=== PATIENT | female | born 1945 | race Caucasian/White ===

== ENCOUNTER → 2017-01-20 | Outpatient (CLI) | payer MEDICARE ==
--- NOTE | 2017-01-20 14:15 | WOMENS IMAGING REPORT ---
EXAM DESCRIPTION: BILAT SCREENING MAMMO W/CAD COMPLETED DATE/TIME: 01/20/2017 7:55 am REASON FOR STUDY: SCREENING MAMMO Z12.31 ENCNTR SCREEN MAMMOGRAM FOR MALIGNANT NEOPLASM OF MANDO COMPARISON: None. TECHNIQUE: Standard craniocaudal and mediolateral oblique views of each breast recorded using digita l acquisition. LIMITATIONS: None. FINDINGS: No masses, calcifications or architectural distortion. No areas of suspicion. Read with the assistance of CAD. .[facility] - R2 [employer] Version 1.3 .[facility] - R2 Cenova Version 1.3 .[facility] - R2 Cenova Version 2.4 .[facility] [place] - R2 Cenova Version 2.4 .[facility] - R2 [employer] Version 9.2 IMPRESSION: NORMAL MAMMOGRAM. BIRADS 1. BREAST DENSITY: a. The breasts are almost entirely fatty. BIRAD: 1 NEGATIVE RECOMMENDATION: ROUTINE SCREENING COMMENT: The patient has been notified of the results by letter per MQSA requirements. Additional no tification policies are in place for contacting patient with suspicious or incomplete findings. Quality ID #[id number]: The [employer] recommends an annual screening mammogram for women aged 40 years or over. This facility utilizes a reminder system to ensure that all patients receive reminder letters, and/or direct phone calls for appointments. This includes reminders for routine scr eening mammograms, diagnostic mammograms, or other Breast Imaging Interventions when appropriate. Th is patient will be placed in the appropriate reminder system. The [employer] ([employer]) has developed recommendations for screening MRI of the breast s in certain patient populations, to be used in conjunction with mammography. Breast MRI surveillanc e may be appropriate for women with more than 20% lifetime risk of developing breast cancer as deter mined by genetic testing, significant family history of the disease, or history of mantle radiation f or Hodgkins Disease. ACR Practice Guidelines 2008. TECHNICAL DOCUMENTATION: FINDING NUMBER: (1) ASSESSMENT: (1) JOB ID: [id number] [employer]- All Rights Reserved
== END ==
LOC: WI 07:29
PROVIDERS: ATTEND Physician Assistant Medical
DX: Z12.31 Encounter for screening mammogram for malignant neoplasm of breast (principal)
CPT/HCPCS: 77067; G0202

== ENCOUNTER 2017-10-19 02:32 | Emergency (ER) | payer MEDICARE, OTHER ==
[2017-10-19] MEDS ORDERED: ASPIRIN 81 MG TABLET, CHEWABLE PO ONE (03:38)
--- NOTE | 2017-10-19 04:17 | ER Document Report ---
ED General - General Chief Complaint: Shortness Of Breath Stated Complaint: SHORTNESS OF BREATH Time Seen by Provider: 10/19/17 03:18 Notes: Patient is a 71-year-old female presenting to the emergency department stating after waking up this evening to go to the bathroom she felt short of breath. Patient states it is about a 12 foot walk from her bed to the bathroom and during that time she became short of breath and broke out in sweat. Patient denies chest pain or syncopal episodes. Patient stated 2 weeks ago she had intermittent chest pain but has not had any since then. Patient denies any trauma or injury to her chest. Patient denies nausea, fever, vomiting, diarrhea , or upper respiratory symptoms. Patient states she has had a hiatal hernia repair and has also been diagnosed with a "fast heart rate." 3 months ago patient states she was taken off of her Eliquis, although was continued on metoprolol and baby aspirin. Patient denies smoking, illicit drug use, states drinks one alcohol beverage a year. TRAVEL OUTSIDE OF THE [place] IN LAST 30 DAYS: No - Related Data Allergies/Adverse Reactions: No Known Allergies Allergy (Unverified 10/19/17 02:38) Past Medical History - General Information source: Patient - Social History Smoking Status: Never Smoker Family History: Reviewed & Not Pertinent Patient has suicidal ideation: No Patient has homicidal ideation: No Renal/ Medical History: Denies: Hx Peritoneal Dialysis Review of Systems - Review of Systems Constitutional: See HPI EENT: No symptoms reported Cardiovascular: See HPI Respiratory: See HPI Gastrointestinal: See HPI Genitourinary: No symptoms reported Female Genitourinary: No symptoms reported Musculoskeletal: See HPI Skin: No symptoms reported Hematologic/Lymphatic: No symptoms reported Neurological/Psychological: No symptoms reported Physical Exam - Vital signs Vitals: Temp Pulse Resp BP Pulse Ox 97.4 F 87 16 150/95 H 96 10/19/17 02:36 10/19/17 02:36 10/19/17 02:36 10/19/17 02:36 10/19/17 02:36 - Notes Notes: GENERAL: Alert, interacts well. No acute distress. HEAD: Normocephalic, atraumatic. EYES: Pupils equal, round, and reactive to light. Extraocular movements intact. ENT: Oral mucosa moist, tongue midline. NECK: Full range of motion. Supple. Trachea midline. LUNGS: Clear to auscultation bilaterally, no wheezes, rales, or rhonchi. No respiratory distress. HEART: Regular rate and rhythm. No murmur ABDOMEN: Soft, non-tender. Non-distended. Bowel sounds present in all 4 quadrants. EXTREMITIES: Moves all 4 extremities spontaneously. Minor swelling left foot into mid calf. Patient states that is normal. Normal radial and dorsalis pedis pulses bilaterally. No cyanosis. BACK: no cervical, thoracic, lumbar midline tenderness. No saddle anesthesia, normal distal neurovascular exam. NEUROLOGICAL: Alert and oriented x3. Normal speech. PSYCH: Normal affect, normal mood. SKIN: Warm, dry, normal turgor. No rashes or lesions noted. Course - Re-evaluation Re-evalutation: Chest x-ray and labs benign. Patient scored 2 PERC criteria. Patient states left lower extremity swelling is chronic. Due to no discernible reason for exertional shortness of breath CTA will be ordered. Patient continues to deny chest pain, and states laying in hospital bed she is not short of breath. Also denies any abdominal pain. Will get an ambulatory pulse ox and reassess. Patient's pulse ox 100% upon ambulation, denies any shortness of breath upon exertion. - Vital Signs Vital signs: Temp Pulse Resp BP Pulse Ox 97.4 F 87 16 150/95 H 99 10/19/17 02:36 10/19/17 02:36 10/19/17 02:36 10/19/17 02:36 10/19/17 04:18 - Laboratory Result Diagrams: 10/19/17 04:17 10/19/17 04:17 Laboratory results interpreted by me: 10/19/17 10/19/17 04:17 04:17 RDW 14.2 H Sodium 145.8 H Chloride 108 H Discharge - Discharge Clinical Impression: Dyspnea on exertion Condition: Stable Disposition: HOME, SELF-CARE Additional Instructions: You have been seen in the emergency department for shortness of breath. Your workup is benign. You are to follow-up with primary care in the next 24-48 hours. Return to the emergency department should he have chest pain, shortness of breath, lightheadedness or dizziness. Referrals: SANDI VILLALBA PA-C [Primary Care Provider] - Follow up as needed
[2017-10-19 04:26] LABS: ABSOLUTE BASOPHILS # (AUTO) 0.1 10^3/uL (0.0-0.2); ABSOLUTE EOSINOPHILS # (AUTO) 0.3 10^3/uL (0.0-0.6); ABSOLUTE LYMPHOCYTES (AUTO) 2.1 10^3/uL (0.5-4.7); ABSOLUTE MONOCYTES (AUTO) 0.7 10^3/uL (0.1-1.4); ABSOLUTE NEUT (AUTO) 4.6 10^3/uL (1.7-8.2); BASOPHILS % (AUTO) 0.8 % (0-2); EOSINOPHILS % (AUTO) 3.7 % (0-6); HEMATOCRIT 39.5 % (36.0-47.0); HEMOGLOBIN 13.2 g/dL (12.0-15.5); LYMPHOCYTES % (AUTO) 26.9 % (13-45); MEAN CORPUSCULAR HEMOGLOBIN 28.3 pg (27.0-33.4); MEAN CORPUSCULAR HGB CONC 33.4 g/dL (32.0-36.0); MEAN CORPUSCULAR VOLUME 85 fl (80-97); MONOCYTES % (AUTO) 8.9 % (3-13); PLATELET COUNT 303 10^3/uL (150-450); RED BLOOD COUNT 4.66 10^6/uL (3.72-5.28); RED CELL DISTRIBUTION WIDTH 14.2 % (11.5-14.0); SEGMENTED NEUTROPHILS % (AUTO) 59.7 % (42-78); TOTAL CELLS COUNTED % (AUTO) 100 %; WHITE BLOOD COUNT 7.7 10^3/uL (4.0-10.5)
[2017-10-19 04:43] LABS: ALANINE AMINOTRANSFERASE 23 U/L (9-52); ALBUMIN 3.5 g/dL (3.5-5.0); ALKALINE PHOSPHATASE 109 U/L (38-126); ANION GAP 11 (5-19); ASPARTATE AMINO TRANSFERASE 21 U/L (14-36); BILIRUBIN,DIRECT 0.2 mg/dL (0.0-0.4); BILIRUBIN,TOTAL 0.2 mg/dL (0.2-1.3); BLOOD UREA NITROGEN 19 mg/dL (7-20); CARBON DIOXIDE 27 mmol/L (22-30); CHLORIDE 108 mmol/L (98-107); CREATINE KINASE 36 U/L (30-135); GLUCOSE 101 mg/dL (75-110); POTASSIUM 4.3 mmol/L (3.6-5.0); SODIUM 145.8 mmol/L (137-145); TOTAL PROTEIN 6.7 g/dL (6.3-8.2)
[2017-10-19 04:54] LABS: CREATINE KINASE MB 0.95 ng/mL (<4.55)
--- NOTE | 2017-10-19 04:55 | RADIOLOGY REPORT (SQ) ---
EXAM DESCRIPTION: XR CHEST 1 VIEW COMPLETED DATE/TME: 10/19/2017 03:30 CLINICAL HISTORY: SOB COMPARISON: None. FINDINGS: Single frontal view of the chest. Cardiomegaly. Low lung volumes. No consolidation, pneumothorax, or pleural effusion. No acute osseous abnormality. Retrocardiac opacity may be related to hiatal hernia. Upper abdominal soft tissues are unremarkable. IMPRESSION: 1. No acute pneumonic process identified. Cardiomegaly. 2. Possible moderate hiatal hernia. Lateral view may be beneficial for confirmation.
[2017-10-19 04:57] LABS: TROPONIN I < 0.012 ng/mL
--- NOTE | 2017-10-19 06:30 | RADIOLOGY REPORT (SQ) ---
EXAM DESCRIPTION: CT CHEST ANGIOGRAPHY WITH IV CONTRAST COMPLETED DATE/TME: 10/19/2017 05:13 CLINICAL HISTORY: SOB on exertion COMPARISON: None Available. TECHNIQUE: CTA of the chest obtained following the uncomplicated intravenous administration of 100 mL Omnipaque 350. 3-D/MIP reformatted images of the chest available for evaluation. DLP: 1392.99 mGycm FINDINGS: Chest: Pulmonary arteries: Contrast bolus is adequate.No filling defects identified in the pulmonary arteries to suggest pulmonary embolus. Thyroid:No abnormalities of the visualized thyroid. Great Vessels:Great vessels have normal anatomic configuration. Thoracic Aorta: Atherosclerotic vascular calcification of the thoracic aorta. Heart: Cardiomegaly. No pericardial effusion or definite coronary artery atherosclerosis. Lymph Nodes:No enlarged mediastinal lymph nodes identified. Esophagus: Moderate hiatal hernia. Postoperative change in the epigastric region. Other: Left fat-containing Bochdalek hernia. Lungs: Minimal bibasilar subsegmental atelectasis. No lobar consolidation. Pleura:No pleural effusion or pneumothorax. Trachea/Airways:No abnormalities of the visualized trachea or airways. Bones: Degenerative change of the spine. Upper Abdomen:Limited images of the upper abdomen demonstrate no definite abnormalities of visualized portions of the gallbladder, pancreas, spleen, adrenal glands, or kidneys. Right hepatic cyst. IMPRESSION: 1. No pulmonary embolus identified. 2. Moderate hiatal hernia. 3. Cardiomegaly. This exam was performed according to our departmental dose-optimization program, which includes automated exposure control, adjustment of the mA and/or kV according to patient size and/or use of iterative reconstruction technique.
--- NOTE | 2017-10-19 07:25 | EKG REPORT ---
SEVERITY:- OTHERWISE NORMAL ECG - SINUS RHYTHM ATRIAL PREMATURE COMPLEX BORDERLINE LEFT AXIS DEVIATION : Confirmed by: Matty Ortiz MD 19-Oct-2017 07:23:49
[2017-10-19 07:47] VITALS: BP 131/71
== END 2017-10-19 08:00 | disposition home or self-care (01) ==
LOC: ER 02:32
DX: R06.09 Other forms of dyspnea (principal); M79.89 Other specified soft tissue disorders; R61 Generalized hyperhidrosis; Z79.899 Other long term (current) drug therapy; Z79.82 Long term (current) use of aspirin
CPT/HCPCS: 93005; 99285; 36415; 82553; 82550; 85025; 80053; 84484; 71045; 71275; 93010; A9270

== ENCOUNTER 2018-04-16 18:07 | Inpatient (IN) | payer MEDICARE, OTHER ==
--- NOTE | 2018-04-16 18:28 | ER Document Report ---
ED Medical Screen (RME) - General Chief Complaint: Abdominal Pain Stated Complaint: ABDOMINAL PAIN Time Seen by Provider: 04/16/18 18:22 Primary Care Provider: SANDI VILLALBA PA-C [Primary Care Provider] - Follow up as needed TRAVEL OUTSIDE OF THE [place] IN LAST 30 DAYS: No - HPI Patient complains to provider of: abd pain Onset: This afternoon - pt. with onset of severe mid abdominal pain starting earlier this afternoon - Related Data Allergies/Adverse Reactions: No Known Allergies Allergy (Verified 04/16/18 18:12) Past Medical History Renal/ Medical History: Denies: Hx Peritoneal Dialysis Physical Exam - Vital signs Vitals: Temp Pulse Resp BP Pulse Ox 97.9 F 92 17 158/90 H 98 04/16/18 18:15 04/16/18 18:15 04/16/18 18:15 04/16/18 18:15 04/16/18 18:15 Course - Vital Signs Vital signs: Temp Pulse Resp BP Pulse Ox 97.9 F 92 17 158/90 H 98 04/16/18 18:15 04/16/18 18:15 04/16/18 18:15 04/16/18 18:15 04/16/18 18:15 Doctor's Discharge - Discharge Referrals: SANDI VILLALBA PA-C [Primary Care Provider] - Follow up as needed
[2018-04-16 18:57] LABS: ABSOLUTE BASOPHILS # (AUTO) 0.1 10^3/uL (0.0-0.2); ABSOLUTE EOSINOPHILS # (AUTO) 0.2 10^3/uL (0.0-0.6); ABSOLUTE LYMPHOCYTES (AUTO) 2.1 10^3/uL (0.5-4.7); ABSOLUTE MONOCYTES (AUTO) 0.8 10^3/uL (0.1-1.4); ABSOLUTE NEUT (AUTO) 7.8 10^3/uL (1.7-8.2); BASOPHILS % (AUTO) 0.6 % (0-2); EOSINOPHILS % (AUTO) 2.1 % (0-6); HEMATOCRIT 39.9 % (36.0-47.0); HEMOGLOBIN 13.5 g/dL (12.0-15.5); LYMPHOCYTES % (AUTO) 19.1 % (13-45); MEAN CORPUSCULAR HEMOGLOBIN 28.8 pg (27.0-33.4); MEAN CORPUSCULAR HGB CONC 33.7 g/dL (32.0-36.0); MEAN CORPUSCULAR VOLUME 85 fl (80-97); MONOCYTES % (AUTO) 7.3 % (3-13); PLATELET COUNT 379 10^3/uL (150-450); RED BLOOD COUNT 4.67 10^6/uL (3.72-5.28); RED CELL DISTRIBUTION WIDTH 13.4 % (11.5-14.0); SEGMENTED NEUTROPHILS % (AUTO) 70.9 % (42-78); TOTAL CELLS COUNTED % (AUTO) 100 %; WHITE BLOOD COUNT 11.1 10^3/uL (4.0-10.5)
[2018-04-16 19:00] LABS: APPEARANCE,URINE CLOUDY; BILIRUBIN,URINE NEGATIVE (NEGATIVE); COLOR,URINE YELLOW; GLUCOSE, URINE NEGATIVE (NEGATIVE); KETONES,URINE NEGATIVE (NEGATIVE); LEUKOCYTE ESTERASE,URINE LARGE (NEGATIVE); NITRITE,URINE POSITIVE (NEGATIVE); PROTEIN,URINE NEGATIVE (NEGATIVE); UROBILINOGEN,URINE NEGATIVE mg/dL (<2.0)
[2018-04-16 19:13] LABS: ALANINE AMINOTRANSFERASE 27 U/L (9-52); ALKALINE PHOSPHATASE 128 U/L (38-126); ANION GAP 7 (5-19); ASPARTATE AMINO TRANSFERASE 23 U/L (14-36); BILIRUBIN,DIRECT 0.1 mg/dL (0.0-0.4); BILIRUBIN,TOTAL 0.4 mg/dL (0.2-1.3); BLOOD UREA NITROGEN 11 mg/dL (7-20); CALCIUM 9.9 mg/dL (8.4-10.2); CARBON DIOXIDE 32 mmol/L (22-30); CHLORIDE 103 mmol/L (98-107); GLUCOSE 108 mg/dL (75-110); LIPASE 37.5 U/L (23-300); POTASSIUM 3.9 mmol/L (3.6-5.0); SODIUM 142.3 mmol/L (137-145); TOTAL PROTEIN 7.3 g/dL (6.3-8.2)
[2018-04-16] MEDS ORDERED: ONDANSETRON HCL INJ/PF 4 MG/2 ML SDV IV ONE (19:29)
--- NOTE | 2018-04-16 20:17 | RADIOLOGY REPORT (SQ) ---
CT ABDOMEN PELVIS WITH IV CONTRAST HISTORY: Abdominal pain. COMPARISON: None. TECHNIQUE: CT scan of the abdomen and pelvis with IV contrast. This exam was performed according to our departmental dose-optimization program, which includes automated exposure control, adjustment of the mA and/or kV according to patient size and/or use of iterative reconstruction technique. FINDINGS: The lung bases are clear. No pleural or pericardial effusions. There is no hiatal hernia. A simple cyst is present in the right hepatic lobe. There has been a prior cholecystectomy. The spleen, pancreas, adrenal glands, and kidneys are unremarkable. No obstructing urinary stones. The uterus are atrophic. There are scattered colonic diverticula without surrounding inflammatory changes. The appendix is normal. There are a few loops of small bowel which are prominent and fluid-filled in the anterior mid abdomen within the small ventral hernia, with surrounding stranding. The distal small bowel loops are nondilated. Small amount of free fluid is seen in the pelvis. The aorta is normal caliber and contains atherosclerotic calcifications. IMPRESSION: Few scattered and fluid-filled small bowel loops in the anterior ventral hernia with surrounding inflammatory stranding. This may represent a developing small bowel obstruction, possibly secondary to adhesions.
[2018-04-16] MEDS ORDERED: CEFTRIAXONE 1 GM/D5W RTU 1 GM/50 ML RTUPB IV ONE (21:40)
--- NOTE | 2018-04-16 21:51 | ER Document Report ---
ED General - General Chief Complaint: Abdominal Pain Stated Complaint: ABDOMINAL PAIN Time Seen by Provider: 04/16/18 18:22 Primary Care Provider: SANDI VILLALBA PA-C [Primary Care Provider] - Follow up as needed Mode of Arrival: Ambulatory Information source: Patient Notes: This is a 72-year-old female with a history of hypertension and hypothyroidism who presents to the emergency room with abdominal pain for 1 day. Patient does state that she has had a recent upper respiratory infection and had been coughing a lot for the past 2 weeks. She states that yesterday she felt fine and awoke this morning and was having generalized abdominal pain. She describes the pain as being in the center of the abdomen. She does report nausea without any vomiting. She does report bloating. TRAVEL OUTSIDE OF THE [place] IN LAST 30 DAYS: No - HPI Onset: This morning Onset/Duration: Gradual Quality of pain: Dull Severity: Moderate Pain Level: 2 Associated symptoms: Nausea. denies: Diarrhea, Fever, Vomiting Exacerbated by: Denies Relieved by: Denies Similar symptoms previously: No Recently seen / treated by doctor: No - Related Data Allergies/Adverse Reactions: No Known Allergies Allergy (Verified 04/16/18 18:12) Past Medical History - General Information source: Patient - Social History Smoking Status: Unknown if Ever Smoked Cigarette use (# per day): No Chew tobacco use (# tins/day): No Frequency of alcohol use: None Drug Abuse: None Lives with: Family Family History: Reviewed & Not Pertinent Patient has suicidal ideation: No Patient has homicidal ideation: No - Past Medical History Cardiac Medical History: Reports: Hx Hypertension Pulmonary Medical History: Reports: None EENT Medical History: Reports: None Neurological Medical History: Reports: None Endocrine Medical History: Reports: Hx Hypothyroidism Renal/ Medical History: Reports: None. Denies: Hx Peritoneal Dialysis Malignancy Medical History: Reports: None GI Medical History: Reports: None Musculoskeletal Medical History: Reports None Skin Medical History: Reports None Psychiatric Medical History: Reports: None Past Surgical History: Reports: Hx Abdominal Surgery - HIATAL HERNIA X 2, 1 HERNIA, Hx Cholecystectomy, Hx Tonsillectomy, Hx Tubal Ligation Review of Systems - Review of Systems Constitutional: denies: Chills, Fever EENT: No symptoms reported Cardiovascular: No symptoms reported Respiratory: No symptoms reported Gastrointestinal: See HPI Genitourinary: No symptoms reported Female Genitourinary: No symptoms reported Musculoskeletal: No symptoms reported Skin: No symptoms reported Hematologic/Lymphatic: No symptoms reported Neurological/Psychological: No symptoms reported Physical Exam - Vital signs Vitals: Temp Pulse Resp BP Pulse Ox 97.9 F 92 17 158/90 H 98 04/16/18 18:15 04/16/18 18:15 04/16/18 18:15 04/16/18 18:15 04/16/18 18:15 Notes: Physical exam: GENERAL: Patient is alert and oriented x3, no acute distress HEAD: Atraumatic, normocephalic. EYES: Pupils equal round and reactive to light, extraocular movements intact, sclera anicteric, conjunctiva are normal. ENT: TMs normal, nares patent, oropharynx clear without exudates. Moist mucous membranes. NECK: Normal range of motion, supple without obvious mass or JVD. LUNGS: Breath sounds clear to auscultation bilaterally and equal. No wheezes rales or rhonchi. HEART: Regular rate and rhythm without murmurs, rubs or gallops. ABDOMEN: Soft, normoactive bowel sounds. She does have tenderness over the ant erior abdomen wall by her incision site. No guarding, no rebound. No pulsatile masses. EXTREMITIES: Normal range of motion, no pitting or edema. No clubbing or cyanosis. NEUROLOGICAL: Cranial nerves II through XII grossly intact. Normal speech, moving all extremities. PSYCH: Normal mood, normal affect. SKIN: Warm, Dry, normal turgor, no rashes or lesions noted. Course - Vital Signs Vital signs: Temp Pulse Resp BP Pulse Ox 97.9 F 92 15 119/71 98 04/16/18 18:15 04/16/18 18:15 04/16/18 21:01 04/16/18 21:01 04/16/18 21:01 - Laboratory Result Diagrams: 04/16/18 18:41 04/16/18 18:41 Laboratory results interpreted by me: 04/16/18 04/16/18 04/16/18 18:36 18:41 18:41 WBC 11.1 H Carbon Dioxide 32 H Alkaline Phosphatase 128 H Urine Blood SMALL H Urine Nitrite POSITIVE H Ur Leukocyte Esterase LARGE H - Diagnostic Test Radiology reviewed: Image reviewed, Reports reviewed - CT shows ventral hernia with stranding and possible early SBO. Discharge - Discharge Clinical Impression: Ventral hernia, Early SBO, UTI Condition: Stable Disposition: ADMITTED INPATIENT Admitting Provider: Surgicalist - Dr Herrera Unit Admitted: Surgical Floor Referrals: SANDI VILLALBA PA-C [Primary Care Provider] - Follow up as needed
--- NOTE | 2018-04-16 22:01 | PDOC H&P ---
History of Present Illness Admission Date/PCP: SANDI VILLALBA PA-C Patient complains of: abdominal pains History of Present Illness: LINDEN LEBRON is a 72 year old female who has been coughing because of her colds for past 2 weeks. Claims she "pulled a muscle" on her LUQ about a week ago. At 3:30 this am c/o abdominal pains with nausea. Had diarrhea earlier in the night. Regular BM yesterday am. Went to ED this afternoon and had a CT scan of abdomen with IV contrast which showed possible starting small bowel obstruction in a ventral hernia. Patient's pains have decreased after the CT scan. Denies vomiting. History of lap owen 2003. Lap Hiatal Hernia repair 2004.Open revision of Hiatal Hernia 2009. Incisional hernia repair with mesh 2014. Past Medical History Cardiac Medical History: Reports: Other - Diagnosed with SVT 2 years ago and controlled with Metoprolol 25 mgs BID. Past Surgical History Past Surgical History: Reports: Cholecystectomy, Tonsillectomy, Tubal Ligation, Other - Hiatal Hernia repair 2004 with open revision in 2009. Incisional hernia re Social History Smoking Status: Unknown if Ever Smoked Family History Family History: Reviewed & Not Pertinent Parental Family History Reviewed: Yes - father of heart problems at age 89 Children Family History Reviewed: No Sibling(s) Family History Reviewed.: No Medication/Allergy Allergies/Adverse Reactions: No Known Allergies Allergy (Verified 04/16/18 18:12) Review of Systems Constitutional: PRESENT: as per HPI, other - no fever/chills Ears: PRESENT: other - no visual/hearing changes Cardiovascular: PRESENT: other - no chest pains Respiratory: PRESENT: cough Gastrointestinal: PRESENT: abdominal pain, diarrhea, nausea Genitourinary: PRESENT: other - no dysuria Physical Exam Vital Signs: Temp Pulse Resp BP Pulse Ox 97.9 F 92 15 119/71 98 04/16/18 18:15 04/16/18 18:15 04/16/18 21:01 04/16/18 21:01 04/16/18 21:01 Intake & Output 04/15/18 04/16/18 04/17/18 06:59 06:59 06:59 Weight 117.5 kg General appearance: PRESENT: mild distress, obese Head exam: PRESENT: atraumatic Eye exam: PRESENT: conjunctiva pink Mouth exam: PRESENT: moist Neck exam: PRESENT: full ROM Respiratory exam: PRESENT: clear to auscultation yaya Cardiovascular exam: PRESENT: RRR Pulses: PRESENT: normal radial pulses Vascular exam: PRESENT: normal capillary refill GI/Abdominal exam: PRESENT: soft, tenderness - distal incisional scar above umbilicus. Could feel part of mesh and possible hernia Rectal exam: PRESENT: deferred Extremities exam: PRESENT: full ROM Musculoskeletal exam: PRESENT: ambulatory Neurological exam: PRESENT: alert, oriented to person, oriented to place, oriented to time, oriented to situation Psychiatric exam: PRESENT: appropriate affect Skin exam: PRESENT: normal color, warm Results Laboratory Results: 04/16/18 18:41 04/16/18 18:41 04/16/18 04/16/18 04/16/18 18:36 18:41 18:41 WBC 11.1 H RBC 4.67 Hgb 13.5 Hct 39.9 MCV 85 MCH 28.8 MCHC 33.7 RDW 13.4 Plt Count 379 Seg Neutrophils % 70.9 Lymphocytes % 19.1 Monocytes % 7.3 Eosinophils % 2.1 Basophils % 0.6 Absolute Neutrophils 7.8 Absolute Lymphocytes 2.1 Absolute Monocytes 0.8 Absolute Eosinophils 0.2 Absolute Basophils 0.1 Sodium 142.3 Potassium 3.9 Chloride 103 Carbon Dioxide 32 H Anion Gap 7 BUN 11 Creatinine 0.64 Est GFR ( Amer) > 60 Est GFR (Non-Af Amer) > 60 Glucose 108 Calcium 9.9 Total Bilirubin 0.4 AST 23 ALT 27 Alkaline Phosphatase 128 H Total Protein 7.3 Albumin 4.0 Lipase 37.5 Urine Color YELLOW Urine Appearance CLOUDY Urine pH 6.0 Ur Specific [place] 1.010 Urine Protein NEGATIVE Urine Glucose (UA) NEGATIVE Urine Ketones NEGATIVE Urine Blood SMALL H Urine Nitrite POSITIVE H Ur Leukocyte Esterase LARGE H Urine WBC (Auto) >182 Urine RBC (Auto) 5 Impressions: Abdomen/Pelvis CT 04/16/18 18:22 IMPRESSION: Few scattered and fluid-filled small bowel loops in the anterior ventral hernia with surrounding inflammatory stranding. This may represent a developing small bowel obstruction, possibly secondary to adhesions. Assessment & Plan - Diagnosis (1) abdominal pains with nausea Is this a current diagnosis for this admission?: Yes (2) starting bowel obstruction Is this a current diagnosis for this admission?: Yes (3) Ventral hernia Is this a current diagnosis for this admission?: Yes (4) UTI (urinary tract infection) Is this a current diagnosis for this admission?: Yes (5) History of paroxysmal supraventricular tachycardia Is this a current diagnosis for this admission?: Yes - Time Time Spent: 30 to 50 Minutes - Inpatient Certification Medical Necessity: Need For IV Fluids, Need for Surgery, Risk of Complication if Not Cared For in Hospital - Plan Summary Plan Summary: Will re-evaluate in am. Patient feels better after CT scan Repeat WBC in am IV antibiotics for UTI Continue Metoprolol and consult Hospitalist for SVT and UTI Hold pain meds. Nurses to call if with increasing pains and insert NGT if vomi ts. May need to repeat CT scan with po contrast to better evaluate bowel in ventral hernia
[2018-04-16] MEDS ORDERED: ONDANSETRON HCL INJ/PF 4 MG/2 ML SDV IV PRN (22:22)
[2018-04-16] MEDS: DEXTROSE 5%-LACTATED RINGERS 1,000 ML IV PRN (23:47)
[2018-04-16] MEDS ORDERED: METOPROLOL TARTRATE PF/INJ 5 MG/5 ML SDV IV PRN (23:59)
[2018-04-17] MEDS ORDERED: METOPROLOL TARTRATE PF/INJ 5 MG/5 ML SDV IV ONE (00:15)
[2018-04-17 05:42] LABS: ABSOLUTE EOSINOPHILS # (AUTO) 0.4 10^3/uL (0.0-0.6); ABSOLUTE LYMPHOCYTES (AUTO) 1.4 10^3/uL (0.5-4.7); ABSOLUTE MONOCYTES (AUTO) 0.7 10^3/uL (0.1-1.4); ABSOLUTE NEUT (AUTO) 5.6 10^3/uL (1.7-8.2); BASOPHILS % (AUTO) 0.5 % (0-2); EOSINOPHILS % (AUTO) 4.7 % (0-6); HEMOGLOBIN 12.1 g/dL (12.0-15.5); LYMPHOCYTES % (AUTO) 17.5 % (13-45); MEAN CORPUSCULAR HEMOGLOBIN 28.8 pg (27.0-33.4); MEAN CORPUSCULAR HGB CONC 33.6 g/dL (32.0-36.0); MEAN CORPUSCULAR VOLUME 86 fl (80-97); MONOCYTES % (AUTO) 8.6 % (3-13); PLATELET COUNT 290 10^3/uL (150-450); RED CELL DISTRIBUTION WIDTH 13.7 % (11.5-14.0); SEGMENTED NEUTROPHILS % (AUTO) 68.7 % (42-78); TOTAL CELLS COUNTED % (AUTO) 100 %; WHITE BLOOD COUNT 8.1 10^3/uL (4.0-10.5)
[2018-04-17] MEDS: METOPROLOL TARTRATE PF/INJ 5 MG/5 ML SDV IV SCH ×2 (05:53→13:13)
[2018-04-17] MEDS: ACETAMINOPHEN 325 MG SUPP.RECT PR PRN ×2 (05:57→10:41)
--- NOTE | 2018-04-17 05:57 | PDOC CONSULTATION ---
Consultation Consult Date: 04/17/18 Attending physician:: COLLEEN MCNULTY Consult reason:: UTI, history of SVT History of Present Illness Admission Date/PCP: 04/16/18 22:11 SANDI VILLALBA PA-C Patient complains of: Abdominal pain History of Present Illness: LINDEN LEBRON is a 72 year old female with history of SVT, hypertension hypothyroidism presenting to the ER with 24 hours of nausea and abdominal pain without vomiting. In the emergency room she is found to have leukocytosis, pyuria and a CT revealing ventral hernia with stranding concerning for small bowel obstruction. She is admitted to surgery. Medicine is consulted for history of SVT and pyuria. Past Medical History Cardiac Medical History: Reports: Hypertension, Other - Diagnosed with SVT 2 years ago and controlled with Metoprolol 25 mgs BID. Pulmonary Medical History: Reports: None EENT Medical History: Reports: None Neurological Medical History: Reports: None Endocrine Medical History: Reports: Hypothyroidism Renal/ Medical History: Reports: None Malignancy Medical History: Reports: None GI Medical History: Reports: None Musculoskeltal Medical History: Reports: None Skin Medical History: Reports: None Psychiatric Medical History: Reports: None Past Surgical History Past Surgical History: Reports: Cholecystectomy, Tonsillectomy, Tubal Ligation, Other - Hiatal Hernia repair 2004 with open revision in 2009. Incisional hernia re Social History Information Source: Emergency Med Personnel, [facility] Records Lives with: Family Smoking Status: Never Smoker Drugs: None - Advance Directive Resuscitation Status: Full Code Family History Family History: Hypertension Parental Family History Reviewed: Yes Children Family History Reviewed: Yes Sibling(s) Family History Reviewed.: Yes Medication/Allergy Home Medications: Aspirin [Aspirin 81 mg Chewable Tablet] 81 mg PO DAILY 04/17/18 Metoprolol Tartrate [Lopressor 25 mg Tablet] 25 mg PO BID 04/17/18 Allergies/Adverse Reactions: No Known Allergies Allergy (Verified 04/16/18 18:12) Review of Systems Constitutional: ABSENT: chills, fever(s), headache(s), weight gain, weight loss Eyes: ABSENT: visual disturbances Ears: ABSENT: hearing changes Cardiovascular: ABSENT: chest pain, dyspnea on exertion, edema, orthropnea, palpitations Respiratory: ABSENT: cough, hemoptysis Gastrointestinal: ABSENT: abdominal pain, constipation, diarrhea, hematemesis, hematochezia, nausea, vomiting Genitourinary: ABSENT: dysuria, hematuria Musculoskeletal: ABSENT: joint swelling Integumentary: ABSENT: rash, wounds Neurological: ABSENT: abnormal gait, abnormal speech, confusion, dizziness, focal weakness, syncope Psychiatric: ABSENT: anxiety, depression, homidical ideation, suicidal ideation Endocrine: ABSENT: cold intolerance, heat intolerance, polydipsia, polyuria Hematologic/Lymphatic: ABSENT: easy bleeding, easy bruising Physical Exam Vital Signs: Temp Pulse Resp BP Pulse Ox 97.9 F 88 19 153/82 H 97 04/17/18 03:46 04/17/18 03:46 04/17/18 03:46 04/17/18 03:46 04/17/18 03:46 Intake & Output 04/15/18 04/16/18 04/17/18 11:59 11:59 11:59 Intake Total 50 Balance 50 Weight 118 kg General appearance: PRESENT: no acute distress, well-developed, well-nourished Head exam: PRESENT: atraumatic, normocephalic Eye exam: PRESENT: conjunctiva pink, EOMI, PERRLA. ABSENT: scleral icterus Ear exam: PRESENT: normal external ear exam Mouth exam: PRESENT: moist, tongue midline Neck exam: ABSENT: carotid bruit, JVD, lymphadenopathy, thyromegaly Respiratory exam: PRESENT: clear to auscultation yaya. ABSENT: rales, rhonchi, wheezes Cardiovascular exam: PRESENT: RRR. ABSENT: diastolic murmur, rubs, systolic murmur Pulses: PRESENT: normal dorsalis pedis pul Vascular exam: PRESENT: normal capillary refill GI/Abdominal exam: PRESENT: diminished bowel sounds, distended, normal bowel sounds, soft, tenderness. ABSENT: guarding, mass, organolmegaly, rebound Rectal exam: PRESENT: deferred Extremities exam: PRESENT: full ROM. ABSENT: calf tenderness, clubbing, pedal edema Neurological exam: PRESENT: alert, awake, oriented to person, oriented to place, oriented to time, oriented to situation, CN II-XII grossly intact. ABSENT: motor sensory deficit Psychiatric exam: PRESENT: appropriate affect, normal mood. ABSENT: homicidal ideation, suicidal ideation Skin exam: PRESENT: dry, intact, warm. ABSENT: cyanosis, rash Results Laboratory Results: 04/17/18 05:22 04/16/18 04/16/1819 18:36 18:41 18:41 WBC 11.1 H RBC 4.67 Hgb 13.5 Hct 39.9 MCV 85 MCH 28.8 MCHC 33.7 RDW 13.4 Plt Count 379 Seg Neutrophils % 70.9 Lymphocytes % 19.1 Monocytes % 7.3 Eosinophils % 2.1 Basophils % 0.6 Absolute Neutrophils 7.8 Absolute Lymphocytes 2.1 Absolute Monocytes 0.8 Absolute Eosinophils 0.2 Absolute Basophils 0.1 Sodium 142.3 Potassium 3.9 Chloride 103 Carbon Dioxide 32 H Anion Gap 7 BUN 11 Creatinine 0.64 Est GFR ( Amer) > 60 Est GFR (Non-Af Amer) > 60 Glucose 108 Calcium 9.9 Total Bilirubin 0.4 AST 23 ALT 27 Alkaline Phosphatase 128 H Total Protein 7.3 Albumin 4.0 Lipase 37.5 Urine Color YELLOW Urine Appearance CLOUDY Urine pH 6.0 Ur Specific [place] 1.010 Urine Protein NEGATIVE Urine Glucose (UA) NEGATIVE Urine Ketones NEGATIVE Urine Blood SMALL H Urine Nitrite POSITIVE H Ur Leukocyte Esterase LARGE H Urine WBC (Auto) >182 Urine RBC (Auto) 5 04/17/18 05:22 WBC 8.1 RBC 4.20 Hgb 12.1 Hct 36.0 MCV 86 MCH 28.8 MCHC 33.6 RDW 13.7 Plt Count 290 Seg Neutrophils % 68.7 Lymphocytes % 17.5 Monocytes % 8.6 Eosinophils % 4.7 Basophils % 0.5 Absolute Neutrophils 5.6 Absolute Lymphocytes 1.4 Absolute Monocytes 0.7 Absolute Eosinophils 0.4 Absolute Basophils 0.0 Sodium Potassium Chloride Carbon Dioxide Anion Gap BUN Creatinine Est GFR ( Amer) Est GFR (Non-Af Amer) Glucose Calcium Total Bilirubin AST ALT Alkaline Phosphatase Total Protein Albumin Lipase Urine Color Urine Appearance Urine pH Ur Specific [place] Urine Protein Urine Glucose (UA) Urine Ketones Urine Blood Urine Nitrite Ur Leukocyte Esterase Urine WBC (Auto) Urine RBC (Auto) Impressions: Abdomen/Pelvis CT 04/16/18 18:22 IMPRESSION: Few scattered and fluid-filled small bowel loops in the anterior ventral hernia with surrounding inflammatory stranding. This may represent a developing small bowel obstruction, possibly secondary to adhesions. Assessment & Plan - Diagnosis (1) History of paroxysmal supraventricular tachycardia Is this a current diagnosis for this admission?: Yes Plan: As patient is n.p.o. continue Lopressor 2.5 IV every 8 hours with 5 mg 12 as needed for tachycardia. (2) UTI (urinary tract infection) Is this a current diagnosis for this admission?: Yes Plan: Patient started on IV Rocephin. Continue daily follow-up CBC blood and urine culture. (3) abdominal pains with nausea Is this a current diagnosis for this admission?: Yes Plan: Defer to surgery - Time Time Spent: 30 to 50 Minutes
[2018-04-17 06:07] LABS: ALANINE AMINOTRANSFERASE 20 U/L (9-52); ALBUMIN 3.3 g/dL (3.5-5.0); ALKALINE PHOSPHATASE 98 U/L (38-126); ANION GAP 7 (5-19); ASPARTATE AMINO TRANSFERASE 17 U/L (14-36); BILIRUBIN,DIRECT 0.2 mg/dL (0.0-0.4); BILIRUBIN,TOTAL 0.4 mg/dL (0.2-1.3); BLOOD UREA NITROGEN 9 mg/dL (7-20); CALCIUM 9.4 mg/dL (8.4-10.2); CARBON DIOXIDE 31 mmol/L (22-30); CHLORIDE 105 mmol/L (98-107); GLUCOSE 118 mg/dL (75-110); POTASSIUM 4.3 mmol/L (3.6-5.0); SODIUM 142.5 mmol/L (137-145)
[2018-04-17] MEDS: DEXTROSE 5%-LACTATED RINGERS 1,000 ML IV PRN (08:53)
[2018-04-17] MEDS ORDERED: CEFTRIAXONE 1 GM/D5W RTU 1 GM/50 ML RTUPB IV SCH (10:00)
--- NOTE | 2018-04-17 12:20 | RADIOLOGY REPORT (SQ) ---
EXAM DESCRIPTION: SMALL BOWEL SERIES COMPLETED DATE/TIME: 04/17/2018 12:00 pm REASON FOR STUDY: R/O SBO COMPARISON: None. FLUOROSCOPY TIME: No fluoroscopy performed. 10 images saved to PACS. LIMITATIONS: None. PROCEDURE: Initial warehouse and receiving supervisor image of abdomen acquired, followed by administration of oral contrast. Se rial radiographic images acquired. Fluoroscopic images recorded of the terminal ileum and other tom cated areas. All images stored on PACS. FINDINGS: LEADERSHIP DEVELOPMENT CONSULTANT KUB: Mild small bowel dilation. No abnormal calcifications. Soft tissue planes nor mal. STOMACH: Hiatal hernia. Normal distention without abnormality. DUODENUM: Normal mucosal pattern with adequate distention. No displacement or obstruction. JEJUNUM: Normal mucosal pattern. Possible mild dilation. ILEUM: Normal mucosal pattern. No dilation. TERMINAL ILEUM AND ILEO-CECAL VALVE: Normal mucosal pattern. PROXIMAL COLON: Contrast is present in the cecum and ascending colon at 60 minutes and progresses int o the transverse colon and descending colon by 2 hours. OTHER: No other significant finding. IMPRESSION: NO EVIDENCE OF MECHANICAL SMALL BOWEL OBSTRUCTION. COMMENT: Quality ID [id number]: Final reports for procedures using fluoroscopy that document radiation exp osure indices, or exposure time and number of fluorographic images (if radiation exposure indices are not available) TECHNICAL DOCUMENTATION: JOB ID: [id number] [employer]- All Rights Reserved Reading location - IP/workstation name: [email or web address]
--- NOTE | 2018-04-17 14:56 | PDOC PROGRESS REPORT ---
Subjective Progress Note for:: 04/17/18 Subjective:: Patient feeling better; she is voiding; is hungry; upper GI and small bowel follow-through shows no evidence of obstruction with contrast of the colon after 3 hours. Reason For Visit: ABDOMINAL PAINS WITH NAUSEA, STARTING BOWEL Physical Exam Vital Signs: Temp Pulse Resp BP Pulse Ox 98.0 F 81 18 149/79 H 100 04/17/18 12:21 04/17/18 13:48 04/17/18 12:21 04/17/18 12:21 04/17/18 12:21 Intake & Output 04/16/18 04/17/18 04/18/18 06:59 06:59 06:59 Intake Total 50 960 Balance 50 960 Weight 118 kg General appearance: PRESENT: no acute distress GI/Abdominal exam: PRESENT: other - Scars consistent with previous surgery; soft no peritoneal signs no rigidity. Results Laboratory Results: 04/17/18 05:22 04/17/18 05:22 04/16/18 04/16/18 04/16/18 18:36 18:41 18:41 WBC 11.1 H RBC 4.67 Hgb 13.5 Hct 39.9 MCV 85 MCH 28.8 MCHC 33.7 RDW 13.4 Plt Count 379 Seg Neutrophils % 70.9 Lymphocytes % 19.1 Monocytes % 7.3 Eosinophils % 2.1 Basophils % 0.6 Absolute Neutrophils 7.8 Absolute Lymphocytes 2.1 Absolute Monocytes 0.8 Absolute Eosinophils 0.2 Absolute Basophils 0.1 Sodium 142.3 Potassium 3.9 Chloride 103 Carbon Dioxide 32 H Anion Gap 7 BUN 11 Creatinine 0.64 Est GFR ( Amer) > 60 Est GFR (Non-Af Amer) > 60 Glucose 108 Calcium 9.9 Total Bilirubin 0.4 AST 23 ALT 27 Alkaline Phosphatase 128 H Total Protein 7.3 Albumin 4.0 Lipase 37.5 Urine Color YELLOW Urine Appearance CLOUDY Urine pH 6.0 Ur Specific [place] 1.010 Urine Protein NEGATIVE Urine Glucose (UA) NEGATIVE Urine Ketones NEGATIVE Urine Blood SMALL H Urine Nitrite POSITIVE H Ur Leukocyte Esterase LARGE H Urine WBC (Auto) >182 Urine RBC (Auto) 5 04/17/18 04/17/18 05:22 05:22 WBC 8.1 RBC 4.20 Hgb 12.1 Hct 36.0 MCV 86 MCH 28.8 MCHC 33.6 RDW 13.7 Plt Count 290 Seg Neutrophils % 68.7 Lymphocytes % 17.5 Monocytes % 8.6 Eosinophils % 4.7 Basophils % 0.5 Absolute Neutrophils 5.6 Absolute Lymphocytes 1.4 Absolute Monocytes 0.7 Absolute Eosinophils 0.4 Absolute Basophils 0.0 Sodium 142.5 Potassium 4.3 Chloride 105 Carbon Dioxide 31 H Anion Gap 7 BUN 9 Creatinine 0.68 Est GFR ( Amer) > 60 Est GFR (Non-Af Amer) > 60 Glucose 118 H Calcium 9.4 Total Bilirubin 0.4 AST 17 ALT 20 Alkaline Phosphatase 98 Total Protein 6.0 L Albumin 3.3 L Lipase Urine Color Urine Appearance Urine pH Ur Specific [place] Urine Protein Urine Glucose (UA) Urine Ketones Urine Blood Urine Nitrite Ur Leukocyte Esterase Urine WBC (Auto) Urine RBC (Auto) Impressions: Abdomen/Pelvis CT 04/16/18 18:22 IMPRESSION: Few scattered and fluid-filled small bowel loops in the anterior ventral hernia with surrounding inflammatory stranding. This may represent a developing small bowel obstruction, possibly secondary to adhesions. Small Bowel X-Ray 04/17/18 00:00 IMPRESSION: NO EVIDENCE OF MECHANICAL SMALL BOWEL OBSTRUCTION. Assessment & Plan - Diagnosis (1) starting bowel obstruction Is this a current diagnosis for this admission?: Yes Plan: Impression: No clinical or radiographic evidence of small bowel obstruction; patient clinically improved Recommendations: 1. Shared results of upper GI study with patient and staff; will start clear l iquids 2. Anticipate discharge home later today if patient tolerates diet.
--- NOTE | 2018-04-17 15:13 | PDOC PROGRESS REPORT ---
Subjective Progress Note for:: 04/17/18 Subjective:: Patient is seen resting in bed. She had x-rays with small bowel follow-through. There is no signs of obstruction. She is not now tolerating clear liquids. She denies any nausea or abdominal pain. She states she feels much better. She denies any chest pain, shortness of breath or dyspnea. She denies any fevers or chills. Remaining review of systems are negative Reason For Visit: ABDOMINAL PAINS WITH NAUSEA, STARTING BOWEL Physical Exam Vital Signs: Temp Pulse Resp BP Pulse Ox 98.0 F 81 18 149/79 H 100 04/17/18 12:21 04/17/18 13:48 04/17/18 12:21 04/17/18 12:21 04/17/18 12:21 Intake & Output 04/16/18 04/17/18 04/18/18 06:59 06:59 06:59 Intake Total 50 960 Balance 50 960 Weight 118 kg General appearance: PRESENT: morbidly obese, well-developed, well-nourished Head exam: PRESENT: atraumatic, normocephalic Eye exam: PRESENT: conjunctiva pink, EOMI, PERRLA. ABSENT: scleral icterus Ear exam: PRESENT: normal external ear exam Mouth exam: PRESENT: moist, tongue midline Neck exam: ABSENT: carotid bruit, JVD, lymphadenopathy, thyromegaly Respiratory exam: PRESENT: clear to auscultation yaya. ABSENT: rales, rhonchi, wheezes Cardiovascular exam: PRESENT: RRR. ABSENT: diastolic murmur, rubs, systolic murmur Pulses: PRESENT: normal dorsalis pedis pul Vascular exam: PRESENT: normal capillary refill GI/Abdominal exam: PRESENT: normal bowel sounds, soft. ABSENT: distended, guarding, mass, organolmegaly, rebound, tenderness Rectal exam: PRESENT: deferred Extremities exam: PRESENT: full ROM. ABSENT: calf tenderness, clubbing, pedal edema Neurological exam: PRESENT: alert, awake, oriented to person, oriented to place, oriented to time, oriented to situation, CN II-XII grossly intact. ABSENT: motor sensory deficit Psychiatric exam: PRESENT: appropriate affect, normal mood. ABSENT: homicidal ideation, suicidal ideation Skin exam: PRESENT: dry, intact, warm. ABSENT: cyanosis, rash Results Laboratory Results: 04/17/18 05:22 04/17/18 05:22 04/16/18 04/16/18 04/16/18 18:36 18:41 18:41 WBC 11.1 H RBC 4.67 Hgb 13.5 Hct 39.9 MCV 85 MCH 28.8 MCHC 33.7 RDW 13.4 Plt Count 379 Seg Neutrophils % 70.9 Lymphocytes % 19.1 Monocytes % 7.3 Eosinophils % 2.1 Basophils % 0.6 Absolute Neutrophils 7.8 Absolute Lymphocytes 2.1 Absolute Monocytes 0.8 Absolute Eosinophils 0.2 Absolute Basophils 0.1 Sodium 142.3 Potassium 3.9 Chloride 103 Carbon Dioxide 32 H Anion Gap 7 BUN 11 Creatinine 0.64 Est GFR ( Amer) > 60 Est GFR (Non-Af Amer) > 60 Glucose 108 Calcium 9.9 Total Bilirubin 0.4 AST 23 ALT 27 Alkaline Phosphatase 128 H Total Protein 7.3 Albumin 4.0 Lipase 37.5 Urine Color YELLOW Urine Appearance CLOUDY Urine pH 6.0 Ur Specific [place] 1.010 Urine Protein NEGATIVE Urine Glucose (UA) NEGATIVE Urine Ketones NEGATIVE Urine Blood SMALL H Urine Nitrite POSITIVE H Ur Leukocyte Esterase LARGE H Urine WBC (Auto) >182 Urine RBC (Auto) 5 04/17/18 04/17/18 05:22 05:22 WBC 8.1 RBC 4.20 Hgb 12.1 Hct 36.0 MCV 86 MCH 28.8 MCHC 33.6 RDW 13.7 Plt Count 290 Seg Neutrophils % 68.7 Lymphocytes % 17.5 Monocytes % 8.6 Eosinophils % 4.7 Basophils % 0.5 Absolute Neutrophils 5.6 Absolute Lymphocytes 1.4 Absolute Monocytes 0.7 Absolute Eosinophils 0.4 Absolute Basophils 0.0 Sodium 142.5 Potassium 4.3 Chloride 105 Carbon Dioxide 31 H Anion Gap 7 BUN 9 Creatinine 0.68 Est GFR ( Amer) > 60 Est GFR (Non-Af Amer) > 60 Glucose 118 H Calcium 9.4 Total Bilirubin 0.4 AST 17 ALT 20 Alkaline Phosphatase 98 Total Protein 6.0 L Albumin 3.3 L Lipase Urine Color Urine Appearance Urine pH Ur Specific [place] Urine Protein Urine Glucose (UA) Urine Ketones Urine Blood Urine Nitrite Ur Leukocyte Esterase Urine WBC (Auto) Urine RBC (Auto) Impressions: Abdomen/Pelvis CT 04/16/18 18:22 IMPRESSION: Few scattered and fluid-filled small bowel loops in the anterior ventral hernia with surrounding inflammatory stranding. This may represent a developing small bowel obstruction, possibly secondary to adhesions. Small Bowel X-Ray 04/17/18 00:00 IMPRESSION: NO EVIDENCE OF MECHANICAL SMALL BOWEL OBSTRUCTION. Assessment & Plan - Diagnosis (1) History of paroxysmal supraventricular tachycardia Is this a current diagnosis for this admission?: Yes Plan: Had no arrhythmias. She will continue Lopressor. She can continue her oral med s (2) UTI (urinary tract infection) Is this a current diagnosis for this admission?: Yes Plan: We will switch antibiotics to p.o. in preparation for possible discharge. Ceftin 500 mg twice daily for the next 7 days. (3) Ventral hernia Is this a current diagnosis for this admission?: Yes Plan: Reducible (4) abdominal pains with nausea Is this a current diagnosis for this admission?: Yes Plan: Pain is resolved. No further nausea. - Time Time Spent with patient: 25-34 minutes Total Critical Time (Minutes): 25 Medications reviewed and adjusted accordingly: Yes Anticipated discharge: Home Within: within 24 hours
[2018-04-17] MEDS ORDERED: ACETAMINOPHEN 325 MG TABLET PO PRN (15:18)
[2018-04-17 16:02] VITALS: BP 144/68
[2018-04-17] MEDS ORDERED: METOPROLOL TARTRATE 25 MG TABLET PO SCH (22:00)
[2018-04-17] MEDS ORDERED: CEFUROXIME 500 MG TABLET PO SCH (22:00)
[2018-04-18] MEDS ORDERED: ASPIRIN 81 MG TABLET, CHEWABLE PO SCH (10:00)
--- NOTE | 2018-04-20 20:38 | DISCHARGE SUMMARY E ---
Discharge Summary NAME: LINDEN LEBRON : 1945 AGE: 72Y ADMITTED: 04/16/2018 DISCHARGED: 04/17/2018 HISTORY OF PRESENT ILLNESS: The patient is a 72-year-old white female with a history of multiple previous abdominal surgeries who presented to the emergency department complaining of left lower quadrant pain x1 week. She was evaluated by CT scan and found to have possible small bowel obstruction, was admitted to the surgical service for same. PAST MEDICAL AND SURGICAL HISTORY: Can be found in the History and Physical document. SUMMARY OF HOSPITALIZATION: The patient was admitted to the surgical service, kept n.p.o. on IV fluids. The following day she had an upper GI with a small bowel follow through which essentially showed no evidence of obstruction with opacification of the colon within 3 hours. The patient was started on clear liquids and felt to have received maximum benefit from the hospitalization and was discharged home. FINAL DIAGNOSIS: Abdominal pain; status post multiple intraabdominal operations; no evidence of bowel obstruction. DISPOSITION: The patient was discharged home in the care of the family. Follow up with [facility], and [facility] on an as needed basis. DICTATING PHYSICIAN: ANA LUGO M.D. [id number] PHY#: [id number] ID: [id number] JOB#: [id number] ACCT: [id number] cc:Taina PETER M.D. >
== END 2018-04-17 18:42 | disposition home or self-care (01) | DRG 394 ==
LOC: ER 18:07 → EH 22:11 → 4N 23:40
PROVIDERS: ADMIT Surgery; ATTEND Surgery
DX: K43.9 Ventral hernia without obstruction or gangrene (principal); K56.50 Intestinal adhesions [bands], unspecified as to partial versus complete obstruction; N39.0 Urinary tract infection, site not specified; I47.1 Supraventricular tachycardia; I10 Essential (primary) hypertension; E03.9 Hypothyroidism, unspecified; E66.01 Morbid (severe) obesity due to excess calories; Z79.82 Long term (current) use of aspirin; Z79.899 Other long term (current) drug therapy
CPT/HCPCS: 36415; 74177; 74250; 80053; 81001; 83690; 85025; 87040; 87086; 94799; 99285; J0696; J2405; J3490

== ENCOUNTER 2018-09-01 18:54 | Emergency (ER) | payer MEDICARE, OTHER ==
[2018-09-01] MEDS ORDERED: ACETAMINOPHEN 325 MG TABLET PO ONE (19:49)
--- NOTE | 2018-09-01 20:31 | RADIOLOGY REPORT (SQ) ---
2 VIEWS OF LEFT LEG 3 VIEWS OF LEFT ANKLE EXAM DATE: 09/01/2018 7:49 PM CDT HISTORY: Fall. COMPARISON: None. FINDINGS: No acute fracture or dislocation is seen. The joint spaces are preserved. The soft tissues are diffusely swollen. IMPRESSION: No acute fracture or malalignment. Diffuse leg and foot swelling.
--- NOTE | 2018-09-01 20:50 | ER Document Report ---
ED Medical Screen (RME) - General Chief Complaint: Fall Stated Complaint: FALL/LEG PAIN Time Seen by Provider: 09/01/18 19:40 Primary Care Provider: SANDI VILLALBA PA-C [Primary Care Provider] - Follow up as needed Mode of Arrival: Wheelchair Information source: Patient Notes: Patient is a 72-year-old female presenting to the emergency department with left leg pain. Patient reports she was out of town for a last week when she fell injuring her left knee and arriaga area. She has increased pain and swelling to the area now. She denies history of DVTs or PEs. She does report multiple long car rides recently. She is not on any blood thinners. Exam: Pitting edema noted to left lower extremity, erythema and ecchymosis noted to mid arriaga/calf area. Diffuse swelling over the knee. I have greeted and performed a rapid initial assessment of this patient. A comprehensive ED assessment and evaluation of the patient, analysis of test results and completion of the medical decision making process will be conducted by additional ED providers. I have specifically instructed the patient or family members with the patient to immediately return to any nursing staff should anything change in the patient's condition or with their chief complaint. This medical record was dictated with voice recognizing software. There may be grammatical, syntax errors that are unintended. TRAVEL OUTSIDE OF THE [place] IN LAST 30 DAYS: No - Related Data Allergies/Adverse Reactions: No Known Allergies Allergy (Verified 09/01/18 18:58) Past Medical History - Social History Frequency of alcohol use: Rare Drug Abuse: None - Past Medical History Cardiac Medical History: Reports: Hx Hypertension Endocrine Medical History: Reports: Hx Hypothyroidism Renal/ Medical History: Denies: Hx Peritoneal Dialysis Past Surgical History: Reports: Hx Abdominal Surgery - HIATAL HERNIA X 2, 1 HERNIA, Hx Cholecystectomy, Hx Tonsillectomy, Hx Tubal Ligation, Other - Hiatal Hernia repair 2004 with open revision in 2009. Incisional hernia re Physical Exam - Vital signs Vitals: Temp Pulse Resp BP Pulse Ox 97.4 F 85 20 141/84 H 99 09/01/18 19:06 09/01/18 19:06 09/01/18 19:06 09/01/18 19:06 09/01/18 19:06 Course - Vital Signs Vital signs: Temp Pulse Resp BP Pulse Ox 97.4 F 85 20 141/84 H 99 09/01/18 19:06 09/01/18 19:06 09/01/18 19:06 09/01/18 19:06 09/01/18 19:06 Doctor's Discharge - Discharge Referrals: SANDI VILLALBA, ARTHURC [Primary Care Provider] - Follow up as needed
--- NOTE | 2018-09-01 21:59 | ER Document Report ---
HPI - HPI Time Seen by Provider: 09/01/18 19:40 Pain Level: 4 Context: Patient is a 72-year-old female who presents to the emergency department with a chief complaint of left leg pain and swelling. She was visiting out of town for a last week and she fell and hit her arriaga and her knee. She states that she feels that the swelling has gotten worse. She normally has swelling in her legs. She did drive quite far for the . Patient denies any history of blood clots in the past. She is not on any blood thinners. - CONSTITUTIONAL Constitutional: DENIES: Fever, Chills - CARDIOVASCULAR Cardiovascular: DENIES: Chest pain - RESPIRATORY Respiratory: DENIES: Trouble Breathing - REPRODUCTIVE Reproductive: DENIES: : - MUSCULOSKELETAL Musculoskeletal: REPORTS: Extremity pain - left leg - DERM Skin Color: Normal Skin Problems: Rash - erythema left arriaga, Bruise - left arriaga Past Medical History - General Information source: Patient - Social History Smoking Status: Never Smoker Frequency of alcohol use: Rare Drug Abuse: None Family History: Hypertension Patient has suicidal ideation: No Patient has homicidal ideation: No - Past Medical History Cardiac Medical History: Reports: Hx Hypertension Endocrine Medical History: Reports: Hx Hypothyroidism Renal/ Medical History: Denies: Hx Peritoneal Dialysis Past Surgical History: Reports: Hx Abdominal Surgery - HIATAL HERNIA X 2, 1 HERNIA, Hx Cholecystectomy, Hx Tonsillectomy, Hx Tubal Ligation, Other - Hiatal Hernia repair 2004 with open revision in 2009. Incisional hernia re Vertical Provider Document - CONSTITUTIONAL Notes: M PHYSICAL EXAMINATION: GENERAL: Appears well, healthy, well-nourished, no acute distress. HEAD: Normocephalic, atraumatic. EYES: PERRL, conjunctiva normal, all extraocular movements intact, sclera nonicteric ENT: Moist mucous membranes. NECK: Supple, no noticeable swelling, redness, rash. Normal range of motion. LUNGS: Equal breath sounds bilaterally and clear to auscultation. No wheezes rales or rhonchi. CARDIOVASCULAR: S1-S2, regular rate, regular rhythm. Radial pulses 2+, normal. ABDOMEN: Normoactive bowel sounds. Soft, nontender, no guarding, no rebound tenderness, and no masses palpated. EXTREMITIES: Normal strength and range of motion, 2+ pitting edema to bilateral lower extremities. No cyanosis. NEUROLOGICAL: Moves all extremities upon command. Strength 5/5 in all extremities, but 4/5 in left lower extremity. PSYCH: Normal mood, normal affect. SKIN: Warm, dry. Erythema noted to left lower extremity near arriaga. Ecchymosis noted to left arriaga. normal skin turgor. - INFECTION CONTROL TRAVEL OUTSIDE OF THE [place] IN LAST 30 DAYS: No Course - Re-evaluation Re-evalutation: 09/01/18 At this time, the unofficial read of the venous Doppler study is negative. The patient does have some cellulitis noted to her left lower extremity with edema. X-rays ordered in triage are negative for any acute fracture. No vascular compromise noted. Pulses are 2+. Capillary refill less than 3 seconds. I will start her on Keflex. She will follow-up with her primary care provider in regards to this visit. Follow-up precautions were given. Verbal discharge instructions were given to the patient. They verbalized understanding. They are stable for discharge. - Vital Signs Vital signs: Temp Pulse Resp BP Pulse Ox 97.4 F 85 20 141/84 H 99 09/01/18 19:06 09/01/18 19:06 09/01/18 19:06 09/01/18 19:06 09/01/18 19:06 Discharge - Discharge Clinical Impression: Left leg pain Cellulitis Qualifiers: Site of cellulitis: extremity Site of cellulitis of extremity: lower extremity Laterality: left Qualified Code(s): L03.116 - Cellulitis of left lower limb Condition: Stable Disposition: HOME, SELF-CARE Additional Instructions: You are seen today in the emergency department for left leg pain. Your x-ray and Doppler study are normal. You do have cellulitis. The rash is likely due to infection of your skin. You need to take the antibiotics as prescribed. Do not stop even if the rash goes away until you have completed all the antibiotics. The area of redness was traced out here in the emergency department with a marking pen. You need to return to emergency department if the redness spreads outside of this area by more than 2 cm in any direction. You should also return if you develop fevers with temperature greater than 101, persistent vomiting, worsening pain, or have any other symptoms that are concerning to you. Prescriptions: Cephalexin [Keflex] 500 mg PO BID #14 capsule Referrals: SANDI VILLALBA PA-C [Primary Care Provider] - Follow up in 3-5 days
[2018-09-01 22:10] VITALS: BP 149/88
--- NOTE | 2018-09-02 08:47 | XCELERA REPORT ---
[address] [facility] [address] Lower Extremity Venous Evaluation Procedure: Color flow and duplex imaging of the veins of the left lower extremity as well as the right Common Femoral vein. Right Sided Venous Evaluation The right common femoral vein is fully compressible. Spontaneous and phasic flow is present in the right common femoral vein. Left Sided Venous Evaluation Normal vessel filling wall to wall, compression and augmentation as well as Colour flow down to the infrageniculate veins. Interpretation Summary No duplex evidence of DVT or obstruction in the left lower extremity nor in the right Common Femoral vein. Name: LEBRONJAMES ANTUNEZMiracle Borden Age: 72 yrs Gender: Female : 1945 Patient Status: Emergency Patient Location: ER Study Date: 09/01/2018 09:17 PM Reason For Study: LLE Ordering Physician: PORFIRIO BLAKE Performed By: Trupti Lyles : PORFIRIO BLAKE > Dustin Gamino
== END 2018-09-01 22:10 | disposition home or self-care (01) ==
LOC: ER 18:54
DX: L03.116 Cellulitis of left lower limb (principal); M79.605 Pain in left leg; M79.89 Other specified soft tissue disorders; I10 Essential (primary) hypertension
CPT/HCPCS: 99284; 93971 ×2; 73610; 73590; A9270

== ENCOUNTER 2019-08-27 22:27 | Emergency (ER) | payer MEDICARE, OTHER ==
[2019-08-27] MEDS ORDERED: NORMAL SALINE 1000 ML 1,000 ML IV ONE (23:30)
--- NOTE | 2019-08-27 23:40 | ER Document Report ---
Entered by ANA MARIA UMAÑA SCRIBE 08/27/19 0805 Acting as scribe for:CHAPITO CHRISTIANSON DO ED General - General Stated Complaint: FEVER COUGH HAS UTI NAUSEA Time Seen by Provider: 08/27/19 23:13 Primary Care Provider: SANDI VILLALBA PA-C [Primary Care Provider] - Follow up as needed Mode of Arrival: Ambulatory Information source: Patient Notes: This 73 year old female patient presents to the emergency department today with complaints of subjective fevers and nausea. Patient reports that she feels like "a truck ran over her and then backed up and ran her over again". Patient states that her nausea is a somewhat chronic issue for her. TRAVEL OUTSIDE OF THE [place] IN LAST 30 DAYS: No - Related Data Allergies/Adverse Reactions: No Known Allergies Allergy (Verified 09/01/18 18:58) Past Medical History - General Information source: Patient - Social History Smoking Status: Unknown if Ever Smoked Cigarette use (# per day): No Frequency of alcohol use: None Drug Abuse: None Lives with: Family Family History: Reviewed & Not Pertinent, Hypertension - Past Medical History Cardiac Medical History: Reports: Hx Hypertension Endocrine Medical History: Reports: Hx Hypothyroidism Past Surgical History: Reports: Hx Abdominal Surgery - HIATAL HERNIA X 2, 1 HERNIA, Hx Cholecystectomy, Hx Tonsillectomy, Hx Tubal Ligation, Other - Hiatal Hernia repair 2004 with open revision in 2009. Incisional hernia re Review of Systems - Review of Systems Constitutional: See HPI, Fever - subjective EENT: No symptoms reported Cardiovascular: No symptoms reported Respiratory: No symptoms reported Gastrointestinal: See HPI, Nausea - chronic Genitourinary: No symptoms reported Female Genitourinary: No symptoms reported Musculoskeletal: No symptoms reported Skin: No symptoms reported Hematologic/Lymphatic: No symptoms reported Neurological/Psychological: No symptoms reported -: Yes All other systems reviewed and negative Physical Exam - Vital signs Vitals: Temp Pulse Resp BP Pulse Ox 99.4 F 96 18 109/66 94 08/27/19 22:47 08/27/19 22:47 08/27/19 22:47 08/27/19 22:47 08/27/19 22:47 - Notes Notes: Physical Exam: General: Alert, appears well. HEENT: Normocephalic. Atraumatic. PERRL. Extraocular movements intact. Oropharynx clear. Dry oral mucosa. Neck: Supple. Non-tender. Respiratory: No respiratory distress. Clear and equal breath sounds bilaterally. Cardiovascular: Regular rate and rhythm. Abdominal: Morbidly obese. Non-tender. No distension. Normal Bowel Sounds. Back: No gross abnormalities. Extremities: Moves all four extremities. Upper extremities: Normal inspection. Normal ROM. Lower extremities: Normal inspection. No edema. Normal ROM. Neurological: Normal cognition. AAOx4. Normal speech. Psychological: Normal affect. Normal Mood. Skin: Warm. Dry. Normal color. Course - Re-evaluation Re-evalutation: 08/28/19 00:55 MDM 73 year old female tells me she "feels like a truck ran over her." Low grade fever at home. Treated at home for UTI which she began antibiotics Wednesday after ua obtained Wednesday. Taking nitrofurantoin. Now with nausea. She feels better after treatment here. IV rocephin given here. Discussed need for follow up with pcp for elevated blood sugar and she expressed understanding. While she does have a uti, she has no elevated lactic acid and no elevated wbc count. Feel likely to be uti that is resistant to nitrofurantoin. She also understands return precautions. - Vital Signs Vital signs: Temp Pulse Resp BP Pulse Ox 99.4 F 96 18 109/66 94 08/27/19 22:47 08/27/19 22:47 08/27/19 22:47 08/27/19 22:47 08/27/19 22:47 - Laboratory Result Diagrams: 08/27/19 23:43 08/27/19 23:43 Laboratory results interpreted by me: 08/27/19 08/27/19 08/28/19 23:43 23:43 00:05 Lymph % (Auto) 8.1 L Seg Neutrophils % 79.9 H Sodium 134.2 L Glucose 141 H Urine Protein 30 H Urine Ketones 20 H Urine Blood SMALL H Urine Urobilinogen 2.0 H Ur Leukocyte Esterase LARGE H - Diagnostic Test Radiology reviewed: Reports reviewed Discharge - Discharge Clinical Impression: Hyperglycemia UTI (urinary tract infection) Qualifiers: Urinary tract infection type: site unspecified Hematuria presence: with hematu dustin Qualified Code(s): N39.0 - Urinary tract infection, site not specified Condition: Stable Disposition: HOME, SELF-CARE Instructions: Cephalexin ([facility]), Urinary Tract Infection ([facility]) Additional Instructions: Rest, medicines as directed. Please return here for inability to tolerate the medicine, other problems or other concerns. Prescriptions: Ondansetron [Zofran Odt 4 mg Tablet] 1 - 2 tab PO Q4HP PRN #10 tab.rapdis PRN Reason: Cephalexin Monohydrate [Keflex 500 mg Capsule] 500 mg PO TID #30 capsule Referrals: SANDI VILLALBA PA-C [Primary Care Provider] - Follow up as needed I personally performed the services described in the documentation, reviewed and edited the documentation which was dictated to the scribe in my presence, and it accurately records my words and actions.
[2019-08-28 00:09] LABS: ABSOLUTE EOSINOPHILS # (AUTO) 0.1 10^3/uL (0.0-0.6); ABSOLUTE LYMPHOCYTES (AUTO) 0.5 10^3/uL (0.5-4.7); ABSOLUTE MONOCYTES (AUTO) 0.6 10^3/uL (0.1-1.4); ABSOLUTE NEUT (AUTO) 5.3 10^3/uL (1.7-8.2); BASOPHILS % (AUTO) 0.5 % (0-2); EOSINOPHILS % (AUTO) 2.2 % (0-6); HEMATOCRIT 38.3 % (36.0-47.0); HEMOGLOBIN 13.1 g/dL (12.0-15.5); LYMPHOCYTES % (AUTO) 8.1 % (13-45); MEAN CORPUSCULAR HGB CONC 34.2 g/dL (32.0-36.0); MEAN CORPUSCULAR VOLUME 85 fl (80-97); MONOCYTES % (AUTO) 9.3 % (3-13); PLATELET COUNT 212 10^3/uL (150-450); RED BLOOD COUNT 4.51 10^6/uL (3.72-5.28); RED CELL DISTRIBUTION WIDTH 13.9 % (11.5-14.0); SEGMENTED NEUTROPHILS % (AUTO) 79.9 % (42-78); TOTAL CELLS COUNTED % (AUTO) 100 %; WHITE BLOOD COUNT 6.7 10^3/uL (4.0-10.5)
[2019-08-28 00:20] LABS: ALBUMIN 3.9 g/dL (3.5-5.0); ALKALINE PHOSPHATASE 115 U/L (38-126); ANION GAP 6 (5-19); ASPARTATE AMINO TRANSFERASE 26 U/L (14-36); BILIRUBIN,TOTAL 0.6 mg/dL (0.2-1.3); BLOOD UREA NITROGEN 17 mg/dL (7-20); CALCIUM 9.1 mg/dL (8.4-10.2); CARBON DIOXIDE 30 mmol/L (22-30); CHLORIDE 98 mmol/L (98-107); GLUCOSE 141 mg/dL (75-110); POTASSIUM 4.2 mmol/L (3.6-5.0); TOTAL PROTEIN 6.9 g/dL (6.3-8.2)
--- NOTE | 2019-08-28 00:23 | RADIOLOGY REPORT (SQ) ---
EXAM DESCRIPTION: XR CHEST 1 VIEW COMPLETED DATE/TME: 08/27/2019 23:29 CLINICAL HISTORY: 73 years, Female, htn COMPARISON: CT 10/19/2017. NUMBER OF VIEWS: 1 TECHNIQUE: Portable chest LIMITATIONS: None. FINDINGS: Heart size at the upper limits of normal. Nodular density in the left lung base corresponds to fat-containing hernia when correlating with prior CT. Lungs otherwise clear. No pneumothorax IMPRESSION: No acute cardiopulmonary process copyright 2010 [employer]- All Rights Reserved
[2019-08-28 00:38] LABS: APPEARANCE,URINE CLOUDY; BILIRUBIN,URINE NEGATIVE (NEGATIVE); COLOR,URINE YELLOW; GLUCOSE, URINE NEGATIVE (NEGATIVE); KETONES,URINE 20 mg/dL (NEGATIVE); LEUKOCYTE ESTERASE,URINE LARGE (NEGATIVE); NITRITE,URINE NEGATIVE (NEGATIVE); PROTEIN,URINE 30 mg/dL (NEGATIVE); URINE SPECIFIC GRAVITY 1.021
[2019-08-28] MEDS ORDERED: CEFTRIAXONE 1 GM/D5W RTU 1 GM/50 ML RTUPB IV ONE (00:40)
[2019-08-28] MEDS ORDERED: ONDANSETRON ODT 4 MG TAB (6 TAB/ER DISP) PO PRN (01:07)
[2019-08-28 01:50] VITALS: BP 114/72
== END 2019-08-28 01:56 | disposition home or self-care (01) ==
LOC: ER 22:27
DX: N39.0 Urinary tract infection, site not specified (principal); R50.9 Fever, unspecified; R05 Cough; I10 Essential (primary) hypertension; E03.9 Hypothyroidism, unspecified
CPT/HCPCS: 99283; 96361; 96365; 36415; 83605; 83690; 85025; 80053; 81001; 71045; J7030; J0696; A9270

== ENCOUNTER → 2019-10-27 | Outpatient (CLI) | payer MEDICARE, OTHER ==
--- NOTE | 2019-10-27 12:43 | WOMENS IMAGING REPORT ---
EXAM DESCRIPTION: 3D SCREENING MAMMO BILAT IMAGES COMPLETED DATE/TIME: 10/27/2019 9:36 am REASON FOR STUDY: Z12.31 ENCNTR SCREEN MAMMOGRAM FOR MALIGNANT NEOPLASM OF BREAST Z12.31 ENCNTR SCR EEN MAMMOGRAM FOR MALIGNANT NEOPLASM OF MANDO COMPARISON: 2017 EXAM PARAMETERS: Standard craniocaudal and mediolateral oblique views of each breast recorded using digital acquisition. Read with the assistance of CAD. .[facility] - [employer] Safety Relief Valve Technician Version 9.2 LIMITATIONS: None. FINDINGS: No suspicious masses, suspicious calcifications or architectural distortion. No areas of c oncern. IMPRESSION: NEGATIVE MAMMOGRAM. BIRADS 1 BREAST DENSITY: a. The breasts are almost entirely fatty. BIRAD: ASSESSMENT: 1 NEGATIVE RECOMMENDATION: ROUTINE SCREENING COMMENT: The patient has been notified of the results by letter per MQSA requirements. Additional no tification policies are in place for contacting patient with suspicious or incomplete findings. Quality ID #[id number]: The [employer] recommends an annual screening mammogram for women aged 40 years or over. This facility utilizes a reminder system to ensure that all patients receive reminder letters, and/or direct phone calls for appointments. This includes reminders for routine scr eening mammograms, diagnostic mammograms, or other Breast Imaging Interventions when appropriate. Th is patient will be placed in the appropriate reminder system. TECHNICAL DOCUMENTATION: FINDING NUMBER: (1) ASSESSMENT: (1) JOB ID: [id number] 2010 [employer]- All Rights Reserved Reading location - IP/workstation name: [email or web address]
== END ==
LOC: WI 09:10
PROVIDERS: ATTEND Physician Assistant Medical
DX: Z12.31 Encounter for screening mammogram for malignant neoplasm of breast (principal)
CPT/HCPCS: 77063; 77067

== ENCOUNTER 2019-12-18 22:15 | Emergency (ER) | payer MEDICARE, OTHER ==
--- NOTE | 2019-12-18 22:33 | ER Document Report ---
ED Medical Screen (RME) - General Chief Complaint: Irregular Pulse Stated Complaint: RAPID HEARTBEAT Time Seen by Provider: 12/18/19 22:30 Primary Care Provider: SANDI VILLALBA PA-C [Primary Care Provider] - Follow up as needed Mode of Arrival: Ambulatory Information source: Patient Notes: 74-year-old female presented to ED for racing heart. She states she has an oximeter at home and her heart rate was going from 160s to 100s and back again. When we did her EKG her pulse was 144 when I did vital signs it was 147. We have had the EKG sent by the MD. Have notified the charge nurse the patient needs a room with a pulse of 147. Patient denies any pain at this time. She states it just feels weird. She denies any shortness of breath. She states she has had tachycardia in the past. I have greeted and performed a rapid initial assessment of this patient. A comprehensive ED assessment and evaluation of the patient, analysis of test results and completion of medical decision making process will be conducted by an additional ED providers. TRAVEL OUTSIDE OF THE U[place] IN LAST 30 DAYS: No - Related Data Allergies/Adverse Reactions: No Known Allergies Allergy (Verified 12/18/19 22:30) Past Medical History - Past Medical History Cardiac Medical History: Reports: Hx Hypercholesterolemia, Hx Hypertension Endocrine Medical History: Reports: Hx Hypothyroidism Renal/ Medical History: Denies: Hx Peritoneal Dialysis Past Surgical History: Reports: Hx Abdominal Surgery - HIATAL HERNIA X 2, 1 HERNIA, Hx Cholecystectomy, Hx Tonsillectomy, Hx Tubal Ligation, Other - Hiatal Hernia repair 2004 with open revision in 2009. Incisional hernia re Physical Exam - Vital signs Vitals: Temp Pulse Resp BP Pulse Ox 98.2 F 147 H 20 141/82 H 96 12/18/19 22:30 12/18/19 22:30 12/18/19 22:30 12/18/19 22:30 12/18/19 22:30 Course - Vital Signs Vital signs: Temp Pulse Resp BP Pulse Ox 98.2 F 147 H 20 141/82 H 96 12/18/19 22:30 12/18/19 22:30 12/18/19 22:30 12/18/19 22:30 12/18/19 22:30 Doctor's Discharge - Discharge Referrals: SANDI VILLALBA PA-C [Primary Care Provider] - Follow up as needed
[2019-12-18] MEDS ORDERED: METOPROLOL TARTRATE 25 MG TABLET PO ONE (23:21)
[2019-12-18 23:23] LABS: ABSOLUTE BASOPHILS # (AUTO) 0.1 10^3/uL (0.0-0.2); ABSOLUTE EOSINOPHILS # (AUTO) 0.3 10^3/uL (0.0-0.6); ABSOLUTE LYMPHOCYTES (AUTO) 2.6 10^3/uL (0.5-4.7); ABSOLUTE MONOCYTES (AUTO) 0.8 10^3/uL (0.1-1.4); ABSOLUTE NEUT (AUTO) 5.6 10^3/uL (1.7-8.2); BASOPHILS % (AUTO) 1.1 % (0-2); EOSINOPHILS % (AUTO) 2.8 % (0-6); HEMATOCRIT 37.7 % (36.0-47.0); HEMOGLOBIN 12.9 g/dL (12.0-15.5); LYMPHOCYTES % (AUTO) 28.1 % (13-45); MEAN CORPUSCULAR HGB CONC 34.1 g/dL (32.0-36.0); MEAN CORPUSCULAR VOLUME 85 fl (80-97); MONOCYTES % (AUTO) 8.6 % (3-13); PLATELET COUNT 276 10^3/uL (150-450); RED BLOOD COUNT 4.43 10^6/uL (3.72-5.28); RED CELL DISTRIBUTION WIDTH 13.9 % (11.5-14.0); SEGMENTED NEUTROPHILS % (AUTO) 59.4 % (42-78); TOTAL CELLS COUNTED % (AUTO) 100 %; WHITE BLOOD COUNT 9.4 10^3/uL (4.0-10.5)
--- NOTE | 2019-12-18 23:24 | ER Document Report ---
ED Cardiac - General Chief Complaint: Palpitations Stated Complaint: RAPID HEARTBEAT Time Seen by Provider: 12/18/19 22:30 Primary Care Provider: SANDI VILLALBA PA-C [Primary Care Provider] - Follow up as needed Mode of Arrival: Ambulatory TRAVEL OUTSIDE OF THE [place] IN LAST 30 DAYS: No - HPI Notes: Patient is a 74-year-old female with a past medical history of paroxysmal SVT, hypertension, and high cholesterol who presents with palpitations. Patient states that she laid down for a nap and woke up with the symptoms. This happened to her about 4 years ago when she was living in [place]. She went to the hospital and was given an IV medicine and admitted. Patient was on Eliquis but after having an echo they have switched her to aspirin. She follows with cardiology in [facility]. She denies any chest pain. No cough or cold symptoms. She denies any urinary symptoms. She states that she takes Lopressor 2 times a day but has not taken her evening dose today. - Related Data Allergies/Adverse Reactions: No Known Allergies Allergy (Verified 12/18/19 22:30) Past Medical History - General Information source: Patient - Social History Smoking Status: Never Smoker Frequency of alcohol use: None Drug Abuse: None Family History: Reviewed & Not Pertinent, Hypertension - Past Medical History Cardiac Medical History: Reports: Hx Hypercholesterolemia, Hx Hypertension Endocrine Medical History: Reports: Hx Hypothyroidism Renal/ Medical History: Denies: Hx Peritoneal Dialysis Past Surgical History: Reports: Hx Abdominal Surgery - HIATAL HERNIA X 2, 1 HERNIA, Hx Cholecystectomy, Hx Tonsillectomy, Hx Tubal Ligation, Other - Hiatal Hernia repair 2004 with open revision in 2009. Incisional hernia re Review of Systems - Review of Systems Notes: CONSTITUTIONAL: No fever, fatigue or weight loss. SKIN: No rash. HENT: No congestion, ear pain, or sore throat. EYES: No recent vision problems or eye pain. ENDOCRINE: No thyroid problems. No polyuria or polydipsia. CARDIOVASCULAR: No chest pain or edema. Positive for palpitations. RESPIRATORY: No cough, shortness of breath, congestion, or wheezing. GASTROINTESTINAL: No abdominal pain, nausea, vomiting, bloody stools or diarrhea. GENITOURINARY: No dysuria. MUSCULOSKELETAL: No joint pain or swelling. LYMPHATIC: No swollen glands. NEUROLOGIC: No seizures. No headache, focal weakness or sensory changes. HEMATOLOGIC: No unusual bruising or bleeding. PSYCHIATRIC: No depression or anxiety. Physical Exam - Vital signs Vitals: Temp Pulse Resp BP Pulse Ox 98.2 F 147 H 20 141/82 H 96 12/18/19 22:30 12/18/19 22:30 12/18/19 22:30 12/18/19 22:30 12/18/19 22:30 Course - Re-evaluation Re-evalutation: 12/19/19 02:23 Patient was initially tachycardic in the 140s. Her EKG was suspicious for SVT. She has had paroxysmal SVT in the past. She did not take her second metoprolol pill today. After patient had her x-ray, her heart rate has normalized. She also converted to normal sinus rhythm without any treatment. She is denying any chest pain. She is denying any symptoms. We will observe the patient. I have ordered 2 troponins. She does have a history of this and has good follow-up with her surgical scrub technician and can call him in the morning. She was on Eliquis but is now on aspirin after having an echocardiogram. She states she normally gets this when she is stressed and she has been stressed as her just had bypass surgery. She also did not take her evening metoprolol pill which I ordered for her. Urine is not obvious for infection. She states she has had numerous UTIs in the past and would prefer to wait on the culture before starting any antibiotics. I do believe this is reasonable as she is afebrile and has no elevated white blood cell count. Patient was given strict return precautions. 12/19/19 02:52 - Vital Signs Vital signs: Temp Pulse Resp BP Pulse Ox 98.2 F 147 H 20 106/83 97 12/18/19 22:30 12/18/19 22:30 12/19/19 01:39 12/19/19 01:39 12/19/19 01:39 - Laboratory Result Diagrams: 12/18/19 22:45 12/18/19 22:45 Laboratory results interpreted by me: 12/18/19 12/19/19 22:45 00:35 Potassium 3.4 L Glucose 127 H Alkaline Phosphatase 146 H Ur Leukocyte Esterase MODERATE H - EKG Interpretation by Al EKG shows normal: Sinus rhythm Rate: Tachycardia When compared to previous EKG there are: Changes noted Additional EKG results interpreted by me: 12/19/19 02:22 First EKG: Sinus tachycardia versus SVT at a rate of 144. QTc 458. Artifact present. No acute ST changes. Repeat EKG: Sinus rhythm at a rate of 80. QTc 439. No acute ST changes. Discharge - Discharge Clinical Impression: Paroxysmal SVT (supraventricular tachycardia), Palpitations Condition: Stable Disposition: HOME, SELF-CARE Instructions: Paroxysmal Supraventricular Tachycardia ([facility]), Palpitations (Irregular or Rapid Heartrate) ([facility]) Additional Instructions: Please call your surgical scrub technician tomorrow for follow-up. Please return to the ER for any return of palpitations, chest pain, any other symptoms. You will be called with the results of your urine culture if you require an antibiotic. Referrals: SANDI VILLALBA PA-C [Primary Care Provider] - Follow up as needed KEYANNA VASQUEZ MD [NO LOCAL MD] - Follow up in 3-5 days
[2019-12-18 23:26] LABS: ALBUMIN 3.7 g/dL (3.5-5.0); ALKALINE PHOSPHATASE 146 U/L (38-126); ANION GAP 9 (5-19); ASPARTATE AMINO TRANSFERASE 23 U/L (14-36); BILIRUBIN,TOTAL 0.2 mg/dL (0.2-1.3); BLOOD UREA NITROGEN 19 mg/dL (7-20); CALCIUM 9.5 mg/dL (8.4-10.2); CARBON DIOXIDE 27 mmol/L (22-30); CHLORIDE 104 mmol/L (98-107); CREATINE KINASE 37 U/L (30-135); GLUCOSE 127 mg/dL (75-110); POTASSIUM 3.4 mmol/L (3.6-5.0); TOTAL PROTEIN 6.7 g/dL (6.3-8.2)
--- NOTE | 2019-12-18 23:36 | RADIOLOGY REPORT (SQ) ---
XR CHEST 2 VIEWS HISTORY: Palpitation. COMPARISON: 08/27/2019 FINDINGS: The heart size is within normal limits. There is no pulmonary vascular congestion. No consolidation, pleural effusion, or pneumothorax is seen. No acute bony findings are seen. There is eventration of the posterior left hemidiaphragm. IMPRESSION: No evidence of acute cardiopulmonary disease.
[2019-12-18] MEDS ORDERED: POTASSIUM CHLORIDE 20 MEQ PACKET PO ONE (23:59)
[2019-12-19 00:55] LABS: APPEARANCE,URINE CLEAR; BILIRUBIN,URINE NEGATIVE (NEGATIVE); COLOR,URINE YELLOW; GLUCOSE, URINE NEGATIVE (NEGATIVE); KETONES,URINE NEGATIVE (NEGATIVE); LEUKOCYTE ESTERASE,URINE MODERATE (NEGATIVE); NITRITE,URINE NEGATIVE (NEGATIVE); PROTEIN,URINE NEGATIVE (NEGATIVE); URINE SPECIFIC GRAVITY 1.018; UROBILINOGEN,URINE NEGATIVE mg/dL (<2.0)
[2019-12-19 03:06] VITALS: BP 118/73
--- NOTE | 2019-12-19 16:42 | EKG REPORT ---
SEVERITY:- ABNORMAL ECG - SINUS OR ECTOPIC ATRIAL RHYTHM LEFT ANTERIOR FASCICULAR BLOCK : Confirmed by: Gerald Perez MD 19-Dec-2019 16:41:25
--- NOTE | 2019-12-19 16:42 | EKG REPORT ---
SEVERITY:- ABNORMAL ECG - SINUS TACHYCARDIA LEFT ANTERIOR FASCICULAR BLOCK CONSIDER POSTERIOR INFARCT REPOLARIZATION ABNORMALITY, PROB RATE RELATED : Confirmed by: Gerald Perez MD 19-Dec-2019 16:41:12
== END 2019-12-19 03:07 | disposition home or self-care (01) ==
LOC: ER 22:15
DX: I47.1 Supraventricular tachycardia (principal); R00.2 Palpitations; I10 Essential (primary) hypertension; Z79.82 Long term (current) use of aspirin; Z79.899 Other long term (current) drug therapy
CPT/HCPCS: 93005; 99285; 36415; 87086; 82550; 83735; 85025; 87088; 80053; 81001; 84484; 71046; 93010; A9270; J3490